=== PATIENT | male | born 1995 | race Native Hawaiian/Other Pacific Islander ===

== ENCOUNTER 2017-11-08 12:29 | Emergency (ER) | payer OTHER ==
--- NOTE | 2017-11-08 13:34 | ED Physician Documentation ---
History of Present Illness - Stated complaint Stated Complaint: PALPATATIONS - Chief complaint Chief Complaint: Cardiac - History obtained from History obtained from: Patient, EMS - History of Present Illness Timing: Prior to arrival - Treatment prior to arrival Treatment prior to arrival: Normal saline, 500 mL IV. 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 He states, "I drank too many energy drinks." He reports drinking coffee, an energy drink, and nicotine , all within about one hour's time. He then felt palpitations, [place] found to have a heart rate of 135. He was subsequently transported by ambulance to the emergency department. At the time of arrival he reports feeling better. He denies any associated chest pain, shortness of breath, or lightheadedness. While enroute to the emergency department medics administered normal saline IV. Review of Systems Constitutional: denies: Fever Ears: denies: Tinnitus/ringing Nose: denies: Congestion Throat: denies: Sore throat Cardiac: reports: Palpitations. denies: Chest pain / pressure Respiratory: denies: Dyspnea, Cough GI: denies: Abdominal Pain, Nausea, Vomiting : denies: Dysuria Skin: denies: Rash Musculoskeletal: denies: Back pain, Extremity pain Neurologic: denies: Focal weakness, Numbness, Altered mental status, Headache PD PAST MEDICAL HISTORY - Past Medical History Cardiovascular: None Respiratory: None Neuro: Other Endocrine/Autoimmune: None - Past Surgical History Past Surgical History: No - Present Medications Home Medications: Ambulatory Orders Medication Instructions Recorded Confirmed No Known Home Medications [No 07/27/14 11/08/17 Known Home Medications] - Allergies Allergies/Adverse Reactions: Allergies Allergy/AdvReac Type Severity Reaction Status Date / Time amoxicillin [Amoxicillin] Allergy Hives Verified 11/08/17 12:37 Penicillins Allergy Hives Verified 11/08/17 13:40 - Social History Does the pt smoke?: Yes Smoking Status: Current every day smoker Does the pt drink ETOH?: Yes - Immunizations Immunizations are current?: Yes PD ED PE NORMAL - Vitals Vital signs reviewed: Yes (normal) - General General: Alert and oriented X 3, No acute distress, Well developed/nourished - HEENT HEENT: Atraumatic, EOMI, Moist mucous membranes, Pharynx benign - Neck Neck: Supple, no meningeal sign, No adenopathy, No JVD - Cardiac Cardiac: RRR, No murmur - Respiratory Respiratory: No respiratory distress, Clear bilaterally - Abdomen Abdomen: Soft, Non tender - Back Back: No CVA TTP - Derm Derm: No rash - Extremities Extremities: No edema, No calf tenderness / cord - Neuro Neuro: Alert and oriented X 3, No motor deficit, No sensory deficit, Normal speech Results - Vitals Vitals: Oxygen O2 Source Room air - EKG (time done) 12:35 Rate: Rate (enter#) (87) Rhythm: NSR [place]: Normal Intervals: Normal CT QRS: Normal Ischemia: ST elevation c/w repol Computer interpretation: Agree with computer PD MEDICAL DECISION MAKING - ED course Complexity details: reviewed results, re-evaluated patient, considered differential, d/w patient ED course: The patient's presentation is consistent with caffeine induced tachycardia. His symptoms were transient, and resolved after administration of normal saline IV, and the passage of time. His presentation does not suggest an acute myocardial ischemic event, pulmonary embolus, or worrisome cardiac rhythm disturbance. By the time of discharge his heart rate was in the normal range at 87, and he felt at his normal baseline. I discussed with him and his card services specialist the likely cause of his symptoms, as well as potentially worrisome signs or symptoms that should prompt reevaluation in the emergency department. Departure - Departure Disposition: 01 Home, Self Care Clinical Impression: Heart palpitations Caffeine adverse reaction Qualifiers: Encounter type: initial encounter Qualified Code(s): T43.615A - Adverse effect of caffeine, initial encounter Condition: Stable Instructions: ED Palpitations Comments: Refrain from excessive use of caffeine or other stimulants. Follow up with your primary physician. Call to schedule an appointment. Return to the emergency department if you develop recurrent palpitations, shortness of breath, lightheadedness, or otherwise worsening symptoms. Discharge Date/Time: 11/08/17 13:45
[2017-11-08 13:45] VITALS: BP 132/71
== END 2017-11-08 13:45 | disposition home or self-care (01) ==
LOC: EDUNIT# → ED 12:29
DX: R00.2 Palpitations (principal); T43.615A Adverse effect of caffeine, initial encounter; F17.200 Nicotine dependence, unspecified, uncomplicated
CPT/HCPCS: 93005; 99283

== ENCOUNTER 2018-03-29 14:07 | Emergency (ER) | payer OTHER ==
[2018-03-29] MEDS ORDERED: IBUPROFEN 800 MG TABLET PO STA (14:36)
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
[2018-03-29 16:43] VITALS: BP 132/82
== END 2018-03-29 16:42 | disposition home or self-care (01) ==
LOC: ED 14:07
DX: M54.42 Lumbago with sciatica, left side (principal); R03.0 Elevated blood-pressure reading, without diagnosis of hypertension; F17.200 Nicotine dependence, unspecified, uncomplicated; W10.9XXA Fall (on) (from) unspecified stairs and steps, initial encounter; X50.0XXA Overexertion from strenuous movement or load, initial encounter; Y93.89 Activity, other specified
CPT/HCPCS: 72100; 99283; A9270

== ENCOUNTER 2018-04-03 22:40 | Outpatient (CLI) | payer OTHER | END 2018-04-03 22:41 | disposition critical access hospital (66) | LOC: EMS 22:40 | PROVIDERS: ATTEND Surgery | DX: R07.9 Chest pain, unspecified (principal) | CPT/HCPCS: A0425; A0427 ==

== ENCOUNTER 2018-04-03 23:00 | Emergency (ER) | payer OTHER ==
--- NOTE | 2018-04-03 23:55 | ED Physician Documentation ---
PD HPI CHEST PAIN - Stated complaint Stated Complaint: CHEST PAIN - Chief complaint Chief Complaint: Cardiac - History obtained from History obtained from: Patient - History of Present Illness Timing - onset: Enter time (21:45) Timing - onset during: Light activity Timing - details: Abrupt onset Quality: Pain Radiation: Jaw (left side of jaw), Back (upper left back), Left upper extremity (left shoulder) Improved by: Other (no ameliorating factors) Worsened by: Other Associated symptoms: No: Shortness of air, Diaphoresis, Nausea, Vomiting Recently seen: Emergency Dept (T+R earlier this month for back pain (different c /o from [employer])) Review of Systems Constitutional: reports: Reviewed and negative Cardiac: reports: Chest pain / pressure. denies: Palpitations, Pedal edema, Calf pain Respiratory: reports: Reviewed and negative GI: reports: Reviewed and negative PD PAST MEDICAL HISTORY - Past Medical History Past Medical History: Yes Cardiovascular: None Respiratory: None Neuro: Migraines Endocrine/Autoimmune: None Derm: Psoriasis - Past Surgical History Past Surgical History: No - Present Medications Home Medications: Ambulatory Orders Medication Instructions Recorded Confirmed Ibuprofen [Motrin] 800 mg PO PRN PRN 03/29/18 Simethicone [Gas-X] 1 tab PO PRN PRN 04/03/18 04/03/18 - Allergies Allergies/Adverse Reactions: Allergies Allergy/AdvReac Type Severity Reaction Status Date / Time amoxicillin [Amoxicillin] Allergy Hives Verified 04/03/18 23:09 Penicillins Allergy Hives Verified 04/03/18 23:09 - Social History Does the pt smoke?: Yes Smoking Status: Current every day smoker Does the pt drink ETOH?: Yes Does the pt have substance abuse?: No - Immunizations Immunizations are current?: Yes PD ED PE NORMAL - Vitals Vital signs reviewed: Yes - General General: Alert and oriented X 3, No acute distress, Well developed/nourished - HEENT HEENT: Moist mucous membranes - Cardiac Cardiac: RRR, No murmur - Respiratory Respiratory: No respiratory distress, Clear bilaterally - Abdomen Abdomen: Soft, Non tender - Extremities Extremities: No edema Results - Vitals Vitals: Oxygen O2 Source Room air - EKG (time done) No standard instances Rate: Rate (enter#) (66) Rhythm: NSR [place]: Normal Intervals: Normal [place] QRS: Normal Ischemia: Normal ST segments - Labs Labs: Laboratory Tests 04/04/18 04/04/18 04/04/18 00:30 00:30 00:30 WBC 5.7 RBC 4.31 L Hgb 13.5 L Hct 38.2 L MCV 88.5 MCH 31.4 H MCHC 35.5 RDW 12.6 Plt Count 156 MPV 8.3 Neut # (Auto) 3.8 Lymph # (Auto) 1.3 L [place] # (Auto) 0.4 Eos # (Auto) 0.1 Baso # (Auto) 0.0 Absolute Nucleated RBC 0.00 Nucleated RBC % 0.1 Sodium 134 L Potassium 3.7 Chloride 102 Carbon Dioxide 26 Anion Gap 6.0 BUN 17 Creatinine 0.8 Estimated GFR (MDRD) 120 Glucose 105 H Calcium 9.1 Total Bilirubin 0.9 AST 35 ALT 33 Alkaline Phosphatase 39 L Troponin I < 0.04 Total Protein 6.8 Albumin 4.1 Globulin 2.7 Albumin/Globulin Ratio 1.5 Lipase 24 - Rads (name of study) chest xray Radiology: Prelim report reviewed, See rad report PD MEDICAL DECISION MAKING - ED course Complexity details: reviewed results, re-evaluated patient, considered differential, d/w patient - Sepsis Event Vital Signs: Oxygen O2 Source Room air Departure - Departure Disposition: 01 Home, Self Care Clinical Impression: Chest pain Qualifiers: Chest pain type: unspecified Qualified Code(s): R07.9 - Chest pain, unspecified Condition: Good Instructions: ED Chest Pain Atypical Unkn Cause Follow-Up: WALLY Dutton [Provider Group] - Within 1 week Comments: I recommend that you take Prilosec or Nexium once per day for two weeks Discharge Date/Time: 04/04/18 01:31
[2018-04-04 00:36] LABS: BASOPHILS % (AUTO) 0.7 %; EOSINOPHILS # (AUTO) 0.1 10^3/uL (0.0-0.7); EOSINOPHILS % (AUTO) 2.3 %; HGB - HEMOGLOBIN 13.5 g/dL (14.0-18.0); LYMPHOCYTES # (AUTO) 1.3 10^3/uL (1.5-3.5); LYMPHOCYTES % (AUTO) 23.6 %; MEAN CORPUSCULAR HEMOGLOBIN 31.4 pg (27.0-31.0); MEAN CORPUSCULAR HGB CONC 35.5 g/dL (32.0-36.0); MEAN CORPUSCULAR VOLUME 88.5 fL (80.0-94.0); MEAN PLATELET VOLUME 8.3 fL (7.4-11.4); MONOCYTES # (AUTO) 0.4 10^3/uL (0.0-1.0); MONOCYTES % (AUTO) 7.3 %; NEUTROPHILS # (AUTO) 3.8 10^3/uL (1.5-6.6); NEUTROPHILS % (AUTO) 66.1 %; PLT - PLATELET COUNT 156 10^3/uL (130-450); RED BLOOD COUNT 4.31 10^6/uL (4.70-6.10); RED CELL DISTRIBUTION WIDTH 12.6 % (12.0-15.0); WHITE BLOOD COUNT 5.7 x10^3/uL (4.8-10.8)
--- NOTE | 2018-04-04 00:44 | XRAY Report ---
Procedure Date: 04/04/2018 Accession Number: [id number] / [id number] Procedure: XR - Chest 2 View X-Ray CPT Code: 40496 FULL RESULT: EXAM: CHEST RADIOGRAPHY EXAM DATE: 04/04/2018 12:27 AM. CLINICAL HISTORY: Chest pain. COMPARISON: None. TECHNIQUE: 2 views. FINDINGS: Lungs/Pleura: No focal opacities evident. No pleural effusion. No pneumothorax. Normal volumes. Mediastinum: Heart and mediastinal contours are unremarkable. Other: None. IMPRESSION: Normal 2-view chest radiography. [facility]
[2018-04-04 00:53] LABS: ALBUMIN 4.1 g/dL (3.2-5.5); BILIRUBIN,TOTAL 0.9 mg/dL (0.2-1.0); CALCIUM 9.1 mg/dL (8.5-10.3); CREATININE 0.8 mg/dL (0.6-1.2); TOTAL PROTEIN 6.8 g/dL (6.7-8.2)
[2018-04-04 00:54] LABS: ALBUMIN/GLOBULIN RATIO 1.5 (1.0-2.2)
[2018-04-04 01:17] VITALS: BP 121/65
[2018-04-04] MEDS ORDERED: PANTOPRAZOLE 40 MG TABLET PO STA (01:22)
== END 2018-04-04 01:31 | disposition home or self-care (01) ==
LOC: EDUNIT# → ED 23:00
DX: R07.9 Chest pain, unspecified (principal); F17.200 Nicotine dependence, unspecified, uncomplicated
CPT/HCPCS: 36415; 71046; 80053; 83690; 84484; 85025; 93005; 99283; A9270

== ENCOUNTER 2018-04-10 11:53 | Emergency (ER) | payer OTHER ==
--- NOTE | 2018-04-10 12:42 | XRAY Report ---
Procedure Date: 04/10/2018 Accession Number: [id number] / [id number] Procedure: XR - Chest 2 View X-Ray CPT Code: 02237 FULL RESULT: EXAM: CHEST RADIOGRAPHY EXAM DATE: 04/10/2018 12:37 PM. CLINICAL HISTORY: Chest pain. COMPARISON: Chest 2 view 04/04/2018. TECHNIQUE: 2 views. FINDINGS: Lungs/Pleura: No focal opacities evident. No pleural effusion. No pneumothorax. Normal volumes. Mediastinum: Heart and mediastinal contours are unremarkable. Other: None. IMPRESSION: Normal 2-view chest radiography. [facility]
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
[2018-04-10 14:14] LABS: HGB - HEMOGLOBIN 13.8 g/dL (14.0-18.0); LYMPHOCYTES % (AUTO) 28.3 %; MEAN CORPUSCULAR HEMOGLOBIN 31.3 pg (27.0-31.0); MEAN CORPUSCULAR HGB CONC 35.7 g/dL (32.0-36.0); MEAN CORPUSCULAR VOLUME 87.9 fL (80.0-94.0); MEAN PLATELET VOLUME 8.5 fL (7.4-11.4); MONOCYTES # (AUTO) 0.3 10^3/uL (0.0-1.0); MONOCYTES % (AUTO) 8.4 %; NEUTROPHILS # (AUTO) 2.3 10^3/uL (1.5-6.6); NEUTROPHILS % (AUTO) 61.3 %; PLT - PLATELET COUNT 185 10^3/uL (130-450); RED CELL DISTRIBUTION WIDTH 12.6 % (12.0-15.0); WHITE BLOOD COUNT 3.7 x10^3/uL (4.8-10.8)
[2018-04-10 14:25] LABS: ALBUMIN 4.3 g/dL (3.2-5.5); ALBUMIN/GLOBULIN RATIO 1.4 (1.0-2.2); BILIRUBIN,TOTAL 1.3 mg/dL (0.2-1.0); CALCIUM 9.5 mg/dL (8.5-10.3); CREATININE 0.9 mg/dL (0.6-1.2); TOTAL PROTEIN 7.4 g/dL (6.7-8.2)
--- NOTE | 2018-04-10 15:02 | Ultrasound Report ---
Procedure Date: 04/10/2018 Accession Number: [id number] / [id number] Procedure: US - Abdomen Limited CPT Code: FULL RESULT: EXAM: ABDOMEN ULTRASOUND LIMITED, RUQ EXAM DATE: 04/10/2018 02:19 PM. CLINICAL HISTORY: Flatulence, postprandial reflux, chest pain. COMPARISON: None. TECHNIQUE: Real-time scanning was performed with static images obtained. FINDINGS: Liver: Normal in size and echotexture. Liver measures at least 16 cm. Main portal vein flow: Hepatopetal. Gallbladder: Normal. No stones, wall thickening, or sonographic Zayas's sign. Biliary System: CBD measures 3 mm. No intrahepatic or extrahepatic ductal dilatation. Other: None. IMPRESSION: Normal. No cholelithiasis or cholecystitis. [facility]
[2018-04-10] MEDS ORDERED: LORazepam 2 MG/ML VIAL IVP STA (15:50)
[2018-04-10 16:04] VITALS: BP 132/90
== END 2018-04-10 16:32 | disposition home or self-care (01) ==
LOC: ED 11:53
DX: F41.1 Generalized anxiety disorder (principal); F43.0 Acute stress reaction; F43.22 Adjustment disorder with anxiety; F17.200 Nicotine dependence, unspecified, uncomplicated; R94.31 Abnormal electrocardiogram [ECG] [EKG]
CPT/HCPCS: 36415; 71046; 76705; 80053; 83690; 84484; 85025; 93005; 96374; 99283; J2060